=== PATIENT | female | born 1955 | race Two or more races ===

== ENCOUNTER 2024-10-22 21:33 | Emergency (ER) | payer MEDICARE, MEDICAID ==
[~2024-10-22] VITALS: Ht 160 cm; Wt 63.5 kg
[2024-10-22] MEDS ORDERED: LORAZEPAM 1 MG TABLET ONE (22:24)
[2024-10-22] MEDS: LORAZEPAM 1 MG TABLET PO ONE (22:24)
[2024-10-22] MEDS ORDERED: TDAP [DIPH/PERTUSSIS/TET] 0.5 ML VIAL IM ONE (23:02)
[2024-10-22] MEDS: TDAP [DIPH/PERTUSSIS/TET] 0.5 ML VIAL IM ONE (23:06)
[2024-10-22] MEDS ORDERED: IBUPROFEN 400 MG TABLET PO ONE (23:30)
[2024-10-22 23:37] VITALS: BP 132/80; TEMP 98.3; O2SAT 98
== END 2024-10-22 23:38 | disposition home or self-care (01) ==
LOC: ER 21:46
DX: S01.01XA Laceration without foreign body of scalp, initial encounter (principal); M35.9 Systemic involvement of connective tissue, unspecified; R51.9 Headache, unspecified; W18.39XA Other fall on same level, initial encounter; Y93.89 Activity, other specified; Y92.89 Other specified places as the place of occurrence of the external cause; Y99.8 Other external cause status
CPT/HCPCS: 70450-TC; 90715